=== PATIENT | female | born 1995 | race Hispanic/Latino ===

== ENCOUNTER 2023-09-08 06:48 | Emergency (ER) | payer BC ==
[~2023-09-08] VITALS: Ht 165.1 cm; Wt 214.6 kg
[2023-09-08 07:13] LABS: BASOPHILS # (AUTO) 0.07 K/uL (0.00-0.20); BASOPHILS % (AUTO) 0.6 % (0.0-5.0); EOSINOPHILS # (AUTO) 0.19 K/uL (0.00-0.70); EOSINOPHILS % (AUTO) 1.8 % (0.0-8.0); HEMATOCRIT 34.1 % (36-48); LYMPHOCYTES % (AUTO) 27.5 % (21.0-51.0); MEAN CORPUSCULAR HEMOGLOBIN 21.7 pg (27.0-33.0); MEAN CORPUSCULAR HGB CONC 29.9 g/dL (32.0-36.0); MEAN CORPUSCULAR VOLUME 72.4 fL (79-99); MONOCYTES # (AUTO) 0.7 K/uL (0.1-1.0); MONOCYTES % (AUTO) 6.1 % (3.0-13.0); NEUTROPHILS # (AUTO) 6.8 K/uL (1.8-7.7); NEUTROPHILS % (AUTO) 63.1 % (40.0-77.0); PLATELET COUNT (AUTO) 438 K/uL (130-400); RED BLOOD CELL COUNT(AUTO) 4.71 MIL/uL (4.00-5.50); RED CELL DISTRIBUTION WIDTH 16.2 % (11.0-15.5); WHITE BLOOD COUNT (AUTO) 10.8 K/uL (4.8-10.8)
[2023-09-08 07:30] LABS: ALBUMIN 3.2 g/dL (3.5-5.0); BILIRUBIN,TOTAL 0.3 mg/dL (0.2-1.0); CREATININE 0.8 mg/dL (0.5-1.0); POTASSIUM 4.4 mmol/L (3.5-5.1); TOTAL PROTEIN, SERUM 7.8 g/dL (6.0-8.3)
[2023-09-08 07:30] LABS: APPEARANCE,URINE CLEAR (CLEAR); BILIRUBIN,URINE NEGATIVE (NEGATIVE); COLOR,URINE LIGHT-YELLOW (YELLOW); GLUCOSE, URINE (UA) NEGATIVE (NEGATIVE); KETONES,URINE NEGATIVE (NEGATIVE); LEUKOCYTE ESTERASE ,URINE NEGATIVE Leu/uL (NEGATIVE); NITRATE,URINE NEGATIVE (NEGATIVE); OCCULT BLOOD,URINE NEGATIVE (NEGATIVE); PROTEIN,URINE NEGATIVE (NEGATIVE); UROBILINOGEN,URINE 0.2 mg/dL (0.2-1.0)
[2023-09-08] MEDS: ONDANSETRON ODT 4MG TAB SL ONE (07:39)
[2023-09-08 07:41] LABS: ADD UA MICROSCOPIC NO; HCG,QUALITATIVE URINE NEGATIVE (NEGATIVE)
[2023-09-08] MEDS: MORPHINE 4 MG SYG IM ONE (07:41)
[2023-09-08] MEDS: KETOROLAC 30MG VIAL (30MG/ML) IVP ONE (08:04)
[2023-09-08 08:10] VITALS: BP 154/87; PULSE 85; RESP 17; O2SAT 97
[2023-09-08] MEDS ORDERED: IBUP-2077 PO (11:33)
[2023-09-08] MEDS ORDERED: TAMS-1 PO (11:33)
[2023-09-08] MEDS ORDERED: ONDA4TAB10 PO (11:33)
[2023-09-08] MEDS: TAMSULOSIN HCL 0.4 MG CAP.ER.24H PO ONE (11:42)
[2023-09-08] MEDS: HYDROCODONE/ACETAMINOPHEN 5/325 MG TAB PO ONE (11:42)
== END 2023-09-08 12:00 | disposition home or self-care (01) ==
LOC: EDH 06:48
DX: R10.32 Left lower quadrant pain (principal); J45.909 Unspecified asthma, uncomplicated; Z90.49 Acquired absence of other specified parts of digestive tract; E66.01 Morbid (severe) obesity due to excess calories; Z68.45 Body mass index [BMI] 70 or greater, adult
CPT/HCPCS: 99285; 74176; 96374; 76830; 80053; 83690; 85025; 81003; 81025; 36415; 96372; J2270; J1885

== ENCOUNTER 2023-11-19 16:15 | Emergency (ER) | payer BC ==
[~2023-11-19] VITALS: Ht 165.1 cm; Wt 192.3 kg
[~2023-11-19 16:15] MED LIST: IBUP-2077 PO; ONDA-243 PO; TAMS-1 PO
[2023-11-19] MEDS: IPRATROPIUM 0.5 MG/2.5 ML INH IH STA (16:52)
[2023-11-19] MEDS: ALBUTEROL 0.042% 1.25MG/3ML IH STA (16:52)
[2023-11-19 16:53] VITALS: PULSE 101; RESP 20
[2023-11-19 17:04] LABS: BASOPHILS # (AUTO) 0.06 K/uL (0.00-0.20); BASOPHILS % (AUTO) 0.6 % (0.0-5.0); EOSINOPHILS # (AUTO) 0.39 K/uL (0.00-0.70); EOSINOPHILS % (AUTO) 3.7 % (0.0-8.0); HEMATOCRIT 35.3 % (36-48); IMMATURE GRANULOCYTE ABSOLUTE 0.07 K/uL (0-1); LYMPHOCYTES # (AUTO) 2.6 K/uL (1.0-4.8); MEAN CORPUSCULAR HGB CONC 30.3 g/dL (32.0-36.0); MEAN CORPUSCULAR VOLUME 72.5 fL (79-99); MONOCYTES # (AUTO) 0.8 K/uL (0.1-1.0); MONOCYTES % (AUTO) 7.6 % (3.0-13.0); NEUTROPHILS # (AUTO) 6.5 K/uL (1.8-7.7); NEUTROPHILS % (AUTO) 62.4 % (40.0-77.0); PLATELET COUNT (AUTO) 370 K/uL (130-400); RED BLOOD CELL COUNT(AUTO) 4.87 MIL/uL (4.00-5.50); RED CELL DISTRIBUTION WIDTH 18.9 % (11.0-15.5); WHITE BLOOD COUNT (AUTO) 10.4 K/uL (4.8-10.8)
[2023-11-19 17:09] LABS: RAPID GROUP A STREP negative (NEGATIVE)
[2023-11-19 17:10] LABS: CREATININE 0.8 mg/dL (0.5-1.0); POTASSIUM 3.8 mmol/L (3.5-5.1)
[2023-11-19 17:14] LABS: SARS-CoV-2, RNA, NAAT NEGATIVE SARS CoV-2 (NEGATIVE)
[2023-11-19 17:18] LABS: INFLUENZA TYPE A Negative For Type A (NEGATIVE); INFLUENZA TYPE B Negative For Type B (NEGATIVE)
[2023-11-19] MEDS: SOLU-MEDROL 125MG VIAL IVP STA (17:33)
[2023-11-19 18:21] VITALS: O2SAT 99
[2023-11-19 18:41] VITALS: PULSE 95; RESP 19
[2023-11-19] MEDS: IPRATROPIUM/ALBUTEROL SULFATE 3 ML SOLUTION IH ONE (18:41)
[2023-11-19 19:25] VITALS: BP 140/95; PULSE 77; RESP 18
[2023-11-19] MEDS ORDERED: AZIT500T2 PO (19:45)
[2023-11-19] MEDS ORDERED: PRED20TA3 PO (19:45)
[2023-11-19] MEDS ORDERED: ALBUHFA IH (19:45)
== END 2023-11-19 19:56 | disposition home or self-care (01) ==
LOC: EDH 16:15
DX: J45.909 Unspecified asthma, uncomplicated (principal); J18.9 Pneumonia, unspecified organism; Z20.822 Contact with and (suspected) exposure to COVID-19
CPT/HCPCS: 99284; 96374; 71045; 87635; 80048; 85025; 87880; 87804 ×2; 36415; 93005; 94640 ×2; J2919